=== PATIENT | female | born 1995 | race Two or more races ===

== ENCOUNTER → 2023-10-16 | Emergency (ER) | payer OTHER ==
[~2023-10-16] VITALS: Ht 170.2 cm; Wt 74.8 kg
== END | disposition left against medical advice (07) ==
LOC: ER 20:14
DX: Z53.21 Procedure and treatment not carried out due to patient leaving prior to being seen by health care provider (principal)

== ENCOUNTER 2023-11-24 16:52 | Outpatient (CLI) | payer OTHER ==
[2023-11-24] MEDS ORDERED: RINGERS SOLUTION,LACTATED 1,000 ML IV SCH (17:15)
[2023-11-24] MEDS ORDERED: IRON236 MG PO (17:21)
[2023-11-24] MEDS ORDERED: PRENATAL TABLE1 EAC4 PO (17:21)
[2023-11-24] MEDS ORDERED: CEFAZOLIN SODIUM 1,000 MG VIAL IV SCH (18:00)
[2023-11-24 18:08] LABS: HEMATOCRIT 30.2 % (36.0-45.00); HEMOGLOBIN 10.4 g/dL (12.0-15.00); MEAN CELL VOLUME 89.1 fL (80.00-100.00); MEAN CORPUSCULAR HEMOGLOBIN 30.7 pg (27.00-32.0); MEAN CORPUSCULAR HGB CONC 34.4 g/dl (32.0-36.0); PLATELET COUNT 148 K/uL (150-450); RED BLOOD COUNT 3.39 M/uL (4.00-6.00); RED CELL DISTRIBUTION WIDTH 13.4 % (11.5-14.5); URINE APPEARANCE Clear; URINE BILIRRUBIN Negative (NEGATIVE); URINE BLOOD Negative; URINE COLOR Yellow; URINE GLUCOSE Negative (NEGATIVE); URINE KETONE Negative (NEGATIVE); URINE LEUKOCYTE Negative; URINE NITRATE Negative; URINE PROTEIN Negative (NEGATIVE)
[2023-11-24 18:11] LABS: URINE BACTERIA 56.6 uL (0.0-1933); URINE EPITHELIAL CELLS 5.3 uL (0.0-38.8); URINE RBC 2.4 uL (0.0-20.8); URINE WBC 4.4 uL (0.0-23.2)
[2023-11-25] MEDS ORDERED: CEFADROXIL500 MG PO (08:16)
== END 2023-11-25 10:39 | disposition home or self-care (01) ==
LOC: OBS/DEL 16:52
PROVIDERS: ATTEND Specialist
DX: O26.893 Other specified pregnancy related conditions, third trimester (principal); Z3A.30 30 weeks gestation of pregnancy; R10.2 Pelvic and perineal pain

== ENCOUNTER 2024-01-28 05:35 | Inpatient (IN) | payer OTHER ==
[2024-01-28] VITALS (10 sets, daily range): BP systolic 109–140; BP diastolic 65–82; O2SAT 99
[~2024-01-28] VITALS: Ht 167.6 cm; Wt 80.3 kg
[~2024-01-28 05:35] MED LIST: CEFADROXIL500 MG PO; IRON236 MG PO; PRENATAL TABLE1 EAC4 PO
[2024-01-28 07:10] LABS: HEMATOCRIT 34.6 % (36.0-45.00); HEMOGLOBIN 12.1 g/dL (12.0-15.00); MEAN CELL VOLUME 88.3 fL (80.00-100.00); MEAN CORPUSCULAR HEMOGLOBIN 30.9 pg (27.00-32.0); RED BLOOD COUNT 3.92 M/uL (4.00-6.00); RED CELL DISTRIBUTION WIDTH 13.7 % (11.5-14.5)
[2024-01-28 07:25] LABS: PLATELET COUNT 128 K/uL (150-450)
[2024-01-28] MEDS ORDERED: OXYTOCIN 500 ML IV SCH (07:30)
[2024-01-28] MEDS ORDERED: RINGERS SOLUTION,LACTATED 1,000 ML IV SCH (07:30)
[2024-01-28 07:32] LABS: URINE APPEARANCE Clear; URINE BILIRRUBIN Negative (NEGATIVE); URINE BLOOD Negative; URINE COLOR Yellow; URINE GLUCOSE Negative (NEGATIVE); URINE KETONE Negative (NEGATIVE); URINE LEUKOCYTE Negative; URINE NITRATE Negative; URINE PROTEIN Negative (NEGATIVE); URINE UROBILINOGEN 0.2 E.U./dl
[2024-01-28 07:33] LABS: URINE BACTERIA 149.8 uL (0.0-1933); URINE EPITHELIAL CELLS 19.8 uL (0.0-38.8); URINE WBC 3.2 uL (0.0-23.2)
[2024-01-28 07:44] LABS: INR 0.94; PARTIAL THROMBOPLASTIN TIME 28.2 SECONDS (22.0-34.0); PROTHROMBIN TIME 10.3 SECONDS (9.0-11.5)
[2024-01-28 07:58] LABS: ALBUMIN 2.7 gm/dL (3.4-5.0); BILIRUBIN TOTAL 0.33 mg/dL (0.3-1.2); CALCIUM 8.9 mg/dL (8.5-10.1); CREATININE SERUM 0.46 mg/dL (0.55-1.02); GFR 159.5; GLOBULINA 3.3 G/DL (2.4-3.5); POTASSIUM 3.91 mEq/L (3.5-5.1)
[2024-01-28] MEDS ORDERED: PROMETHAZINE HCL 25 MG/ML AMPUL IV ONE (12:45)
[2024-01-28] MEDS ORDERED: MEPERIDINE HCL/PF 50 MG/ML VIAL IV ONE (12:45)
[2024-01-28] MEDS ORDERED: ACETAMINOPHEN 325 MG TABLET PO PRN (15:00)
[2024-01-28] MEDS ORDERED: LIDOCAINE HCL 1% 2ML VIAL IJ ONE (15:00)
[2024-01-28] MEDS ORDERED: OXYTOCIN 20 UNITS/1000ML RL PIGGYBAG IV ONE (15:00)
[2024-01-28] MEDS ORDERED: CHLORHEXIDINE GLUCONATE 120 ML BOTTLE TOP ONE (15:00)
[2024-01-28] MEDS ORDERED: OxyCODONE HCL/APAP UD (PERCOCET) PO PRN (15:00)
[2024-01-28] MEDS ORDERED: ERYTHROMYCIN BASE OPHT 1GM EACH TUBE OP ONE (15:00)
[2024-01-28] MEDS ORDERED: HYDROCORTISONE 2.5% 30 GM TUBE RECTAL SCH (17:00)
[2024-01-28] MEDS ORDERED: BENZOCAINE/MENTHOL 90 ML BOTTLE TOP SCH (17:00)
[2024-01-29 00:20] VITALS: BP 99/63
[2024-01-29 01:44] LABS: HEMATOCRIT 35.6 % (36.0-45.00); HEMOGLOBIN 12.2 g/dL (12.0-15.00); MEAN CORPUSCULAR HEMOGLOBIN 30.4 pg (27.00-32.0); MEAN CORPUSCULAR HGB CONC 34.2 g/dl (32.0-36.0); RED CELL DISTRIBUTION WIDTH 13.6 % (11.5-14.5)
[2024-01-29 01:52] LABS: PLATELET COUNT 124 K/uL (150-450)
[2024-01-29 10:39] VITALS: BP 119/68
[2024-01-29 12:30] VITALS: BP 118/80
[2024-01-29 16:00] VITALS: BP 106/67
[2024-01-30] VITALS: BP 109/70
[2024-01-30 08:15] VITALS: BP 122/79
[2024-01-30] MEDS ORDERED: IBUPROFEN800 MG PO (09:52)
== END 2024-01-30 14:41 | disposition home or self-care (01) | DRG 798 ==
LOC: OB/GYN 05:35 → LDR 05:35 → OB/GYN 15:30
PROVIDERS: ADMIT Specialist; ATTEND Specialist
PROC: 10E0XZZ Delivery of Products of Conception, External Approach (ICD-10-PCS; principal; 2024-01-28)
PROC: 0HQ9XZZ Repair Perineum Skin, External Approach (ICD-10-PCS; 2024-01-28)
PROC: 4A1HXCZ Monitoring of Products of Conception, Cardiac Rate, External Approach (ICD-10-PCS; 2024-01-28)
PROC: 0UB70ZZ Excision of Bilateral Fallopian Tubes, Open Approach (ICD-10-PCS; 2024-01-29)
DX: O70.0 First degree perineal laceration during delivery (principal); Z37.0 Single live birth; Z30.2 Encounter for sterilization; Z20.822 Contact with and (suspected) exposure to COVID-19; Z3A.39 39 weeks gestation of pregnancy